=== PATIENT | female | born 1985 | race Hispanic/Latino ===

== ENCOUNTER 2016-11-30 08:56 | Day surgery (SDC) | payer OTHER ==
[2016-11-30 09:30] VITALS: O2SAT 100
[2016-11-30] MEDS ORDERED: ceFAZolin 1 gm FROZEN Premix 0 ML IVPB ONE (11:20)
[2016-11-30] MEDS ORDERED: Propofol 10 mg/ml Inj (20 ML) ONE (11:58)
[2016-11-30] MEDS ORDERED: Midazolam 2 MG/2 ML VIAL ONE (11:59)
[2016-11-30] MEDS ORDERED: Lactated Ringer's 1,000 ML IV ONE (12:03)
[2016-11-30] MEDS ORDERED: Bupivacaine 0.5% Inj(30mL) ONE (12:26)
[2016-11-30] MEDS ORDERED: HYDROmorphone 0.5 mg/0.5 ml ISec IVP PRN (13:09)
[2016-11-30] MEDS ORDERED: Lactated Ringer's 500 ML IV ONE (14:00)
[2016-11-30 14:35] VITALS: RESP 18
[2016-11-30 15:54] VITALS: BP 102/56; PULSE 85; TEMP 98
--- NOTE | 2016-12-01 20:46 | PCM.SURG1 ---
Surgeon's Initial Post Op Note - Surgeon's Notes Surgeon: Ella Levine MD Cigarette Packer: Horacio Elkins MD Type of Anesthesia: General LMA Pre-Operative Diagnosis: Multiparity desiring permeantne tubal sterilzation, secondary amenorrhea, undesired , likely retained products of concpetion cannot rule out early pregnacy vs ectopic Operative Findings: uterus 8-10 weeks, anteverted, no palpable adnexal masses, retrained products of conception on suction dilation and currettage, laparscopy : normal uteurs, tubes and ovaries bilaterally,. Dr Horacio Elkins was surigcal program services assistant and was present for entire case and essential in gaining entry, retraction, exospure, holding camera and manipulating uterus, removiing specimen , closing all layers Post-Operative Diagnosis: multiparity desring permanet tubal sterilzation, retained products of conception Operation Performed: Operative laparascopy, bilateral salpingectomy, Suctional dilation and currettage Specimen/Specimens Removed: Retained prodcuts of conception, left and right fallopian tubes Estimated Blood Loss: EBL {In ML}: 10 Blood Products Given: N/A Drains Used: No Drains Post-Op Condition: Good Date of Surgery/Procedure: 11/30/16 Time of Surgery/Procedure: 12:00
--- NOTE | 2016-12-03 07:00 | OP ---
PROCEDURE DATE: 11/30/2016 SURGEON: Dr. Ella Levine DIRECTOR OF CREATIVE SERVICES: Dr. Horacio Elkins TYPE OF ANESTHESIA: General LMA. PREOPERATIVE DIAGNOSES: Multiparity, desiring permanent tubal sterilization secondary to amenorrhea, undesired , retained products of conception, cannot rule out early versus ectopic . OPERATIVE FINDINGS: Uterus 8-10 weeks, anteverted. No palpable adnexal masses. Retained products o f conception ____ suction dilation and curettage, laparoscopy, normal uterus and tubes and ovaries bi laterally. Dr. Horacio Elkins was surgical orderly and was present for the entire case and was essential in gaini ng entry, retraction, exposure, holding the camera, manipulating the uterus, removing the specimen an d closing all layers. POSTOPERATIVE DIAGNOSES: Multiparity, desiring permanent tubal sterilization, retained products of c onception. OPERATION PERFORMED: Operative laparoscopy, laparoscopic bilateral salpingectomy, suction dilation a nd curettage. SPECIMEN REMOVED: Retained products of conception, left and right fallopian tubes. ESTIMATED BLOOD LOSS: ____ mL. BLOOD PRODUCTS: None. COMPLICATIONS: None. The patient is a 30-year-old female that was initially desiring multiparity in which a laparoscopic b ilateral tubal ligation, possible salpingectomy was initially scheduled. However, upon presurgical t esting, patient was noted to have a positive test and was referred to alternative provider for elective termination of . The patient then underwent a suction dilation and curettage i n early October for elective termination of and followed up and requested permanent tubal laine rilization. Upon ____, patient was noted to have a positive urine test and denied any sexu al relations since in the termination. The patient states this is not a desired and denies any bleeding ____ or any other symptoms. The patient was counseled on early versus abnorm al versus retained products of conception versus possible ectopic. The patient wanted to p roceed with surgery as described below. Consent was signed and witnessed. After informed consent was obtained, the patient was taken to the operating room and a general anesth etic was administered. She was then positioned in the dorsal supine position with the legs supported using stirrups and prepped and draped in usual sterile fashion. Once the anesthetic was found to be adequate, bimanual exam was performed under anesthesia. A Reynoso retractor was placed in the anterior , posterior fornix of vagina. The cervix was adequately visualized. A Teale tenaculum was placed on the anterior lip of the cervix. The cervix was then sequentially dilated serially with the Guillaume dil ators to a size of 20. Following this, a 7 mm curved suction curette was then advanced to the fundus . The suction was then activated and rotated 360 degrees in which there was minimal to moderate amou nt of products of conception removed. A gentle curettage was done 360 degrees and sent to pathology on Tel. The suction curette was then advanced an additional time and bubbles were noted to be with in the suction canister. All instruments were removed. The Teale tenaculum was removed and there wa s good hemostasis noted at the tenaculum site. A sponge stick was then placed into the vagina to hel p allow for uterine manipulation and ____ were then removed. Next, attention was then turned to the abdomen. The surgeons all ____ previous ____. A 1 cm supraumbilical skin incision was made ___ aspe ct of the umbilicus was grasped using the towel clamp on either side and the Veress needle was then i nserted through the incision. ____ was used to inject normal saline into the Veress needle. The nor mal saline ____ Veress needle was connected to CO2 gas, which was started at the lowest setting. The gas was seen to flow freely with normal resistance so the CO2 gas was then advanced to a normal sett ing. The abdomen was insufflated to an adequate distention to 15 mmHg. Once adequate dissection was reached, the CO2 gas was disconnected. The Veress needle was removed and the skin incision was then extended and a 5 mm step trocar was introduced ____ was placed under direct visualization. The intr oducer was then removed and the camera was then inserted and the gas was then reconnected. Upon insp ection, there was normal uterus, tubes, and ovaries. There was no fluid or hemorrhage noted to be wi thin the cul-de-sac ____. Following this, the 1 cm incision was made in the right lower quadrant aft er the area was transilluminated with the camera. Local anesthetic was administered of Marcaine ____ and a 5 mm trocar was then inserted under direct visualization. Following this, in similar fashion, a 5 mm port was then placed ____ left umbilicus in the left lower quadrant in a similar fashion. Th ere was a total of 3 ports. Following this, an atraumatic ____ grasper was then used to elevate the left fallopian tube. The uterus was anteverted with ____ in the vagina. A 5 mm LigaSure device was then inserted and the fallopian tube was then carefully cauterized and dissected away and the specime n was then removed through the 5 mm port. Attention was ____ to the right side, which in a similar f ashion was grasped, elevated with the atraumatic grasper and the LigaSure device was then used to hel p cauterize and remove the specimen, which was removed through the 5 mm port. There was good hemosta sis noted at all sites. All instruments were removed. The liver was examined and appeared to be wit hin normal limits. At this point, the ports were then removed under direct visualization. The camer a was then removed. The CO2 gas was disconnected and the abdomen was desufflated. All laparoscopic incisions were closed with a 4-0 Monocryl in a running subcuticular fashion. They were all Steri-Str ipped and bandaged appropriately. The sponge stick was then removed from the vagina. All instrument s were removed. All needle, sponge and instrument counts were noted to be correct x 2. The patient tolerated the procedure well and was transferred to the recovery room in good condition. Ella Levine MD cc: [id number] TT: 12/02/2016 08:17:02 en
== END 2016-11-30 15:20 | disposition home or self-care (01) ==
LOC: C.SDS 08:56
PROVIDERS: ATTEND Obstetrics & Gynecology
DX: Z30.2 Encounter for sterilization (principal); N91.2 Amenorrhea, unspecified; Z64.1 Problems related to multiparity; O03.4 Incomplete spontaneous abortion without complication
CPT/HCPCS: 36415; 58661; 59812; 84702; 88302; 88305; J1100; J1885; J2250; J2405; J2704; J3010; J7120